=== PATIENT | female | born 2000 | race Hispanic/Latino ===

== ENCOUNTER 2018-04-20 18:52 | Day surgery (SDC) ==
[2018-04-20] MEDS ORDERED: ALPRAZolam 0.5 MG TAB PO SCH (20:45)
[2018-04-20 20:57] VITALS: BP 117/64; TEMP 99.1
== END 2018-04-20 21:05 | disposition home or self-care (01) ==
LOC: L&D/OP 18:52
PROVIDERS: ATTEND Family Medicine
DX: Z34.90 Encounter for supervision of normal pregnancy, unspecified, unspecified trimester (principal)
CPT/HCPCS: 76815; 99283

== ENCOUNTER 2018-04-21 21:37 | Inpatient (IN) | payer SELFPAY, OTHER ==
[~2018-04-21 21:37] MED LIST: Bupivacaine/Epinephrine 0.25% 30 ML VIAL ONE; ePHEDrine/0.9% NaCl/PF SYRINGE 50 mg/10 ml ONE
[2018-04-21] MEDS ORDERED: NS / Oxytocin 40 units/1000ml 1,000 ML IV PRN (21:44)
[2018-04-21] MEDS ORDERED: Acetaminophen 500 MG TAB PO PRN (21:44)
[2018-04-21] MEDS ORDERED: Butorphanol Tartrate 1 MG/ML VIAL SLOW IVP PRN (21:44)
[2018-04-21] MEDS ORDERED: Misoprostol 200 MCG TAB PR PRN (21:44)
[2018-04-21] MEDS ORDERED: Lidocaine 1% (PF) 30 ML VIAL SC PRN (21:44)
[2018-04-21] MEDS ORDERED: Ibuprofen 800 MG TAB PO PRN (21:44)
[2018-04-21] MEDS ORDERED: Acetaminophen/Codeine 30-300mg Tablet PO PRN (21:44)
[2018-04-21] MEDS ORDERED: Ondansetron HCl/PF 4 MG/2 ML Vial IVP PRN (21:44)
[2018-04-21] MEDS ORDERED: Promethazine HCl 25 MG/ML VIAL IM PRN (21:44)
[2018-04-21] MEDS ORDERED: HYDROcodone/Acetaminophen 5/325 mg Tablet PO PRN (21:44)
[2018-04-21] MEDS ORDERED: Zolpidem Tartrate 5 MG TAB PO PRN (21:44)
[2018-04-21] MEDS: Lactated Ringer's 1,000 ML IV SCH (22:00)
[2018-04-21 23:11] LABS: Hemoglobin 13.6 g/dL (12.0-16.0); Mean Corpuscular HGB CONC 34.6 g/dL (32.0-36.0); Mean Corpuscular Hemoglobin 30.7 pg (25.0-35.0); Mean Corpuscular Volume 88.8 fL (78.0-98.0); Mean Platelet Volume 6.9 fL (7.4-10.4); Platelet Count 435 thou/uL (130-400); RBC Distribution Width 13.6 % (11.5-14.5); Red Blood Cell (RBC) Count 4.42 mill/uL (4.00-5.20); White Blood Cell (WBC) Count 10.2 thou/uL (4.8-10.8)
[2018-04-21] MEDS: Misoprostol 100 MCG TAB VAG SCH (23:40)
[2018-04-21 23:43] LABS: Syphilis Antibody Nonreactive (Nonreactive); Syphilis Antibody Index 0.03 S/CO (<1.00 Non-Reactive)
[2018-04-22] MEDS: Misoprostol 100 MCG TAB VAG SCH ×5 (02:50→16:34)
[2018-04-22] MEDS: Lactated Ringer's 1,000 ML IV SCH ×2 (06:39→15:51)
[2018-04-22] MEDS ORDERED: Misoprostol 100 MCG TAB VAG SCH (10:15)
[2018-04-22] MEDS ORDERED: NS w/ Oxytocin 10 units 500 ML ONE (14:25)
[2018-04-22] MEDS ORDERED: DISCONTINUE ALL PREVIOUS NARCOTICS FS SCH (14:45)
[2018-04-22] MEDS ORDERED: Naloxone HCl 0.4 mg/ml Vial IVP PRN ×2 (15:03)
[2018-04-22] MEDS ORDERED: Eucerin (Mineral Oil/Petrolatum,White) 30 gm Jar TOP PRN (15:03)
[2018-04-22] MEDS ORDERED: diphenhydrAMINE 50 MG/ML VIAL IVP PRN (15:03)
[2018-04-22] MEDS ORDERED: Promethazine HCl 25 MG/ML VIAL IM PRN (15:03)
[2018-04-22] MEDS ORDERED: Ondansetron HCl/PF 4 MG/2 ML Vial IVP PRN (15:03)
[2018-04-22] MEDS ORDERED: Acetaminophen 325 MG TAB PO PRN (15:03)
[2018-04-22] MEDS ORDERED: ePHEDrine/0.9% NaCl/PF SYRINGE 50 mg/10 ml SLOW IVP PRN (15:03)
[2018-04-22] MEDS ORDERED: Lactated Ringer's 500 ML IV PRN (15:03)
[2018-04-22] MEDS ORDERED: Communication Order-Pharmacy FS SCH (15:15)
[2018-04-22] MEDS ORDERED: fentaNYL Citrate/PF 400 MCG, Bupivacaine 0.5% 20 ML in Sodium Chloride 0.9% 72 ML EPIDURAL SCH (15:15)
[2018-04-22] MEDS: Bupivacaine 0.5% 20 ML, fentaNYL Citrate/PF 400 MCG in Sodium Chloride 0.9% 72 ML EPIDURAL SCH ×2 (15:51→22:01)
[2018-04-22] MEDS ORDERED: NS w/ Oxytocin 10 units 500 ML IVPB SCH (16:30)
--- NOTE | 2018-04-23 07:29 | OP ---
DATE OF PROCEDURE: 04/23/2018 PREOPERATIVE DIAGNOSES: A 31-week intrauterine demise. POSTOPERATIVE DIAGNOSES: A 31-week intrauterine demise, status post delivery. PROCEDURE: Normal spontaneous vaginal delivery. SURGEON: Andria Buckner M.D. COMPLICATIONS: No complications. The patient has been diagnosed the day prior to admission with a 31-week intrauterine demise no kamilah an incidental ultrasound. PROCEDURE IN DETAIL: She was admitted on 04/21/2018 for induction. Risks and alternatives had been explained with the patient. She underwent Cytotec followed by Pitocin and Cooks balloon induction. Noted approximately 2 hours prior to delivery the balloon was deflated, spontaneous rupture of membra myriam. The patient progressed to approximately 6-7 cm and felt the urge to push and noted that the bab y was in the vaginal vault at that time. The patient underwent precipitous spontaneous vaginal deliv cholo with nurse in attendance of a nonviable normal appearing female baby. Cord was clamped and cut a nd infant was handed to care of the family for care. It was noted that there was marked twisting of the umbilical cord. Placenta delivered spontaneously. There was minimal bleeding. There were no la cerations. The patient to remain in LDR and family with baby at this time. QBL: 160 mL.
[2018-04-23] MEDS ORDERED: Ferrous Sulfate 325 MG TAB PO SCH (08:00)
[2018-04-23] MEDS ORDERED: Prenatal Vitamin 1 TAB PO SCH (09:00)
[2018-04-23] MEDS ORDERED: Docusate Calcium (SURFAK) 240 MG CAP PO SCH (09:11)
[2018-04-23] MEDS ORDERED: Zolpidem Tartrate 5 MG TAB PO PRN (09:11)
[2018-04-23] MEDS ORDERED: Ondansetron HCl/PF 4 MG/2 ML Vial IVP PRN (09:11)
[2018-04-23] MEDS ORDERED: Milk Of Magnesia 30 ML UDCUP PO PRN (09:11)
[2018-04-23] MEDS ORDERED: HYDROcodone/Acetaminophen 5/325 mg Tablet PO PRN (09:11)
[2018-04-23] MEDS ORDERED: diphenhydrAMINE 25 MG CAP PO PRN (09:11)
[2018-04-23] MEDS ORDERED: Benzocaine/Menthol 20-0.5% 60 ML CAN TOP PRN (09:11)
[2018-04-23] MEDS ORDERED: NS / Oxytocin 40 units/1000ml 1,000 ML IV SCH (09:11)
[2018-04-23] MEDS ORDERED: Preparation H Ointment 28 GM TUBE PR PRN (09:11)
[2018-04-23] MEDS ORDERED: Acetaminophen/Codeine 30-300mg Tablet PO PRN (09:11)
[2018-04-23 09:47] VITALS: BP 109/62; TEMP 98.3
[2018-04-23] MEDS ORDERED: Ibuprofen 800 MG TAB PO SCH (14:00)
== END 2018-04-23 10:33 | disposition home or self-care (01) | DRG 770 ==
LOC: L&D 21:37
PROVIDERS: ADMIT Family Medicine; ATTEND Family Medicine
PROC: 10D17Z9 Manual Extraction of Products of Conception, Retained, Via Natural or Artificial Opening (ICD-10-PCS; principal; 2018-04-21)
PROC: 3E0P7VZ Introduction of Hormone into Female Reproductive, Via Natural or Artificial Opening (ICD-10-PCS; 2018-04-21)
DX: O02.1 Missed abortion (principal); Z37.1 Single stillbirth; Z3A.31 31 weeks gestation of pregnancy
CPT/HCPCS: 36415; 51702; 85027; 86780; 86850; 86900; 86901; C1726; J0595; J2001; J2405; J3010; J3490; J7050

== ENCOUNTER 2018-04-23 20:00 | Emergency (ER) | payer OTHER, SELFPAY ==
[2018-04-23 20:29] LABS: Bilirubin Negative (Negative); Blood, Urine Large (Negative); Clarity CLOUDY (Clear); Glucose, Urine (Dipstick) Negative (Negative); Leukocyte Large (Negative); Nitrite Negative (Negative); Protein, Urine (Dipstick) 30 mg/dL (Neg-Trace); Specific Gravity, Urine 1.007 (1.002-1.036); Urobilinogen 0.2 mg/dL (0.2-1.0)
[2018-04-23 20:30] LABS: Bacteria/HPF None Seen HPF (None Seen); Hyaline Casts/LPF 0-3 HYALINE CAST LPF (0-3 Hyaline); Pathc Cast-AUWi Flag 0.58 (0-2.49); RBC/HPF GREATER THAN 50-TNTC HPF (0-3); WBC/HPF 21-50 HPF (0-3)
[2018-04-23 21:50] LABS: #Basophils 0.1 thou/uL (0.0-0.2); #Eosinphils 0.2 thou/uL (0.0-0.7); #Lymphocytes 2.8 thou/uL (1.20-3.40); #Monocytes 0.8 thou/uL (0.11-0.59); #Neutrophils 7.3 thou/uL (1.40-6.50); %Basophils 0.6 % (0.0-1.0); %Eosinophils 2.2 % (0.0-10.0); %Monocytes 6.7 % (0.0-4.0); %Neutrophils 65.4 % (31.0-61.0); Hemoglobin 13.3 g/dL (12.0-16.0); Mean Corpuscular HGB CONC 34.3 g/dL (32.0-36.0); Mean Corpuscular Hemoglobin 31.1 pg (25.0-35.0); Mean Corpuscular Volume 90.6 fL (78.0-98.0); Platelet Count 360 thou/uL (130-400); RBC Distribution Width 13.3 % (11.5-14.5); Red Blood Cell (RBC) Count 4.28 mill/uL (4.00-5.20); White Blood Cell (WBC) Count 11.1 thou/uL (4.8-10.8)
[2018-04-23 22:10] LABS: Anion Gap 12 mmol/L (10-20); BUN (Urea Nitrogen) 5 mg/dL (7.0-18.7); Calc. Creatinine Clearance 0 mL/min (70-130); Calcium 8.5 mg/dL (7.8-10.44); Carbon Dioxide 20 mmol/L (22-29); Chloride 111 mmol/L (98-107); Estimated GFR-MDRD Greater than 90; Glucose 88 mg/dL (70-105); Potassium 3.8 mmol/L (3.5-5.1); Sodium 139 mmol/L (136-145)
== END 2018-04-23 23:07 | disposition home or self-care (01) ==
LOC: ERS 20:00
DX: R42 Dizziness and giddiness (principal); M54.5 Low back pain; R10.9 Unspecified abdominal pain; O03.9 Complete or unspecified spontaneous abortion without complication
CPT/HCPCS: 36415; 80048; 81003; 81015; 85025; 99284